=== PATIENT | male | born 1995 ===

== ENCOUNTER → 2016-12-26 | Outpatient (REF) | LOC: WSOH 13:38 | DX: Z01.83 Encounter for blood typing (principal) ==

== ENCOUNTER → 2016-12-28 | Outpatient (REF) | LOC: WSOH 16:00 | DX: Z01.83 Encounter for blood typing (principal) ==

== ENCOUNTER → 2017-01-09 | Outpatient (REF) | LOC: WSOH 16:00 | DX: Z01.83 Encounter for blood typing (principal) ==

== ENCOUNTER → 2017-02-15 | Outpatient (REF) | LOC: WSOH 11:26 | DX: Z01.89 Encounter for other specified special examinations (principal) ==